=== PATIENT | female | born 1970 | race Caucasian/White ===

== ENCOUNTER → 2021-11-01 | Outpatient (CLI) | payer OTHER ==
[~2021-11-01] MED LIST: ACHD5005 PO; ASPI325T32 PO; CEFA-4 PO; CLIN300C3 PO; CYCL10TA9 PO; FLC150T PO; FURO20TA4 PO; FURO40TA4 PO; HYDR-2890 PO; HYDR-3583 PO; HYDR-707 PO; HYDR1CAP2 PO; IBP600T1 PO; KCL20TCR PO; KETO-22 PO; LEVO500T69 PO; LEVO75TA57 PO; MONT10TA21 PO; MV,C200T3 PO; OMEP-10 PO; OXYC-109 PO; PRD20T PO; SIMV40TA2 PO; SMV20T PO; TRAM50TA2 PO
--- NOTE | 2021-11-01 10:10 | Diagnostic Imaging Report ---
PROCEDURE: MR imaging cervical spine without contrast. TECHNIQUE: Multiplanar, multisequence MR imaging of the cervical spine was performed without contrast. INDICATION: Neck and right shoulder pain. Correlated with CT cervical spine performed 05/17/2013. I have no other priors. FINDINGS: Since the comparison ACDF has been performed at the C5-C6 as well as C6-C7 levels. The alignment across above and below the fusion is anatomic. Cervical statures are within normal limits. No edematous or acute marrow signal pathology. Cervical spinal cord itself has a normal volume and normal morphology and normal signal intensity. There is no paravertebral mass, hemorrhage or fluid collection. Craniocervical relationship normal. Degenerative hypertrophy across the C1-C2 articulation results in no substantial stenosis. C2-C3: Very slight anterior osteophyte disc material is present without resultant stenosis. C3-C4: There is a disc desiccation and slight disc stature loss with mild circumferential disc bulge but no focal herniation and no resultant canal or foraminal stenosis. C4-C5: Disc desiccation stature loss, bulge with endplate osteophytes. The osteophyte disc material posteriorly effaces and indents the ventral thecal sac and results in mild canal stenosis. There is moderate left and mild right foraminal narrowing. C5-C6: There is resolution of prior spinal canal and biforaminal stenoses post ACDF without complication. C6-C7: There is likely some recurrent disc bulge posteriorly asymmetric to the right with right greater than left uncovertebral joints, spurring and arthrosis. Findings result in only mild biforaminal stenoses however and borderline mild canal narrowing. Overall findings at this level have improved substantially from the preoperative exam. C7-T1: This level is unremarkable. There is no stenosis. IMPRESSION: 1. Multilevel lower cervical ACDF performed with resolution of stenoses at the C5-C6 and improved stenoses at C6-C7. 2. Degenerative changes mildly progressed above that level with mild to moderate stenoses detailed level by level above with no acute bony pathology, cord abnormality or acute findings. Dictated by: Dictated on workstation # [id number]
--- NOTE | 2021-11-01 13:19 | Diagnostic Imaging Report ---
PROCEDURE: MRI right joint upper extremity without contrast. TECHNIQUE: Multiplanar, multisequence non contrast-enhanced MRI of the right upper extremity was accomplished. INDICATION: Chronic right shoulder pain since February 2021 COMPARISON: None FINDINGS: No acute fracture is seen in the right shoulder. Alignment is normal. There is no significant joint effusion. There are mild degenerative changes in the acromioclavicular joint. The supraspinatus tendon demonstrates moderate tendinosis with a high-grade partial-thickness bursal surface tear measuring about 5 mm wide. There is additional tendinosis with low-grade partial-thickness tearing of the distal infraspinatus tendon. The teres minor tendon is intact. The subscapularis tendon appears intact. There is no muscular atrophy. The long head of the biceps tendon is normal in course and signal. The glenoid labrum is suboptimally evaluated in the absence of intra-articular contrast. No paralabral cyst is seen. The acromion has a curved undersurface. There is mild subacromial spurring. The coracoclavicular and coracoacromial ligaments are intact. There is moderate fluid in the subacromial subdeltoid bursa. Soft tissues about the right shoulder are otherwise unremarkable. IMPRESSION: 1. Small high-grade partial thickness tear of the right supraspinatus tendon with additional tendinosis and low-grade partial-thickness tearing in the rotator cuff. 2. Moderate subacromial subdeltoid bursitis. 3. Mild degenerative change in the acromioclavicular joint with subacromial spurring. Dictated by: Dictated on workstation # [id number]
== END ==
LOC: RAD 08:45
PROVIDERS: ATTEND Nurse Practitioner
DX: M50.321 Other cervical disc degeneration at C4-C5 level (principal); M75.111 Incomplete rotator cuff tear or rupture of right shoulder, not specified as traumatic; M50.221 Other cervical disc displacement at C4-C5 level; M48.02 Spinal stenosis, cervical region; M25.78 Osteophyte, vertebrae; M19.011 Primary osteoarthritis, right shoulder; M75.51 Bursitis of right shoulder
CPT/HCPCS: 72141; 73221

== ENCOUNTER 2022-01-03 14:51 | Outpatient (RCR) | payer OTHER | END 2022-01-06 | disposition home or self-care (01) | PROVIDERS: ATTEND Orthopaedic Surgery | DX: M75.01 Adhesive capsulitis of right shoulder (principal); M75.111 Incomplete rotator cuff tear or rupture of right shoulder, not specified as traumatic ==

== ENCOUNTER 2022-02-05 16:25 | Outpatient (RCR) | payer OTHER | END 2022-02-06 | disposition home or self-care (01) | PROVIDERS: ATTEND Orthopaedic Surgery | DX: M75.01 Adhesive capsulitis of right shoulder (principal); M75.111 Incomplete rotator cuff tear or rupture of right shoulder, not specified as traumatic ==

== ENCOUNTER 2022-02-07 16:23 | Outpatient (RCR) | payer OTHER | END 2022-03-08 | disposition home or self-care (01) | PROVIDERS: ATTEND Orthopaedic Surgery | DX: M75.01 Adhesive capsulitis of right shoulder (principal); M75.111 Incomplete rotator cuff tear or rupture of right shoulder, not specified as traumatic ==